=== PATIENT | female | born 2000 | race African-American/Black ===

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

== ENCOUNTER 2020-02-02 01:03 | Emergency (ER) | payer MEDICAID ==
[~2020-02-02] VITALS: Ht 170.2 cm; Wt 111.4 kg
[~2020-02-02 01:03] MED LIST: ACETAMINOPHEN325 MG PO; CIPRO500 MG PO; IBUPROFEN200 MG PO; PROPRANOLOL PO; TRI SPRINTEC PO
[2020-02-02 01:06] VITALS: Ht 170.2 cm; Wt 111.4 kg
[2020-02-02 01:24] LABS: BASOPHILS 0.3 % (0-2); HEMATOCRIT 36.6 % (36.0-48.0); HEMOGLOBIN 11.7 g/dL (12-16); IMMATURE GRANULOCYTES 0.2 % (0-5); LYMPHOCYTES 31.1 % (15-50); MCH 26.5 pg (26.0-34.0); MCV 82.8 fL (80.0-100.0); MEAN PLATELET VOLUME 10.5 fL (7.4-10.4); MONOCYTES 8.5 % (2-11); NEUTROPHILS 58.9 % (40-80); PLATELET COUNT 317 10x3/uL (130-400); RBC 4.42 10x6/uL (4.00-5.40); RDW 15.3 % (11.5-14.5)
[2020-02-02 01:34] LABS: CALC OSMOLALITY 283 mosm/kg (275-300); CALCIUM 8.9 mg/dL (8.5-10.1); CARBON DIOXIDE 24.4 mmol/L (21.0-32.0); CHLORIDE - SERUM 108 mmol/L (98-107); CREATININE - SERUM 0.6 mg/dL (0.6-1.3); GLUCOSE 95 mg/dL (74-106); POTASSIUM - SERUM 4.4 mmol/L (3.5-5.1); SODIUM 144 mmol/L (136-145); UREA NITROGEN 5 mg/dL (7-18); eGFR NON AFRICAN AMERICAN > 90 mL/min (90-120)
[2020-02-02 01:40] LABS: ALBUMIN 3.4 g/dL (3.4-5.0); ALKALINE PHOSPHATASE 58 U/L (30-120); ALT (SGPT) 17 U/L (10-68); BILIRUBIN - TOTAL 0.25 mg/dL (0.2-1.3); PROTEIN - SERUM 7.4 g/dL (6.4-8.2)
[2020-02-02 01:41] LABS: HCG SERUM NEGATIVE (NEGATIVE)
[2020-02-02 02:08] LABS: BILIRUBIN NEGATIVE (NEGATIVE); KETONE NEGATIVE (NEGATIVE); NITRITE NEGATIVE (NEGATIVE); UROBILINOGEN NORMAL mg/dL (< 2)
[2020-02-02 02:13] LABS: UDS - AMPHET NEGATIVE QUAL (NEGATIVE); UDS - BARB NEGATIVE QUAL (NEGATIVE); UDS - BENZO POSITIVE QUAL (NEGATIVE); UDS - COCAINE POSITIVE QUAL (NEGATIVE); UDS - OPIATE POSITIVE QUAL (NEGATIVE); UDS - PCP NEGATIVE QUAL (NEGATIVE); UDS - THC POSITIVE QUAL (NEGATIVE)
[2020-02-02] MEDS ORDERED: AMOXICILLIN500 M1 PO (03:11)
[2020-02-02] MEDS ORDERED: ULTRAM50 MG PO (03:11)
[2020-02-02 03:33] VITALS: BP 114/79
== END 2020-02-02 03:33 | disposition home or self-care (01) ==
LOC: D.ER 01:03
PROVIDERS: Family Medicine
DX: K02.9 Dental caries, unspecified (principal); K08.89 Other specified disorders of teeth and supporting structures